=== PATIENT | male | born 1985 | race Caucasian/White ===

== ENCOUNTER 2024-07-31 14:52 | Outpatient (OUT) | payer OTHER, SELFPAY | END 2024-07-31 14:53 | disposition home or self-care (01) | LOC: PST 14:53 | PROVIDERS: Visit Provider Urology | DX: Z01.818 Encounter for other preprocedural examination (principal); Z30.2 Encounter for sterilization; I10 Essential (primary) hypertension ==

== ENCOUNTER 2024-08-01 08:49 | Day surgery (SDC) | payer OTHER, SELFPAY ==
[2024-08-01 09:00] VITALS: BP 145/94; PULSE 71; TEMP 36.1; O2SAT 99; BMI 38.1
[2024-08-01] MEDS: LACTATED RINGER'S SOLUTION 1,000 ML 50 ML IV (09:26)
[2024-08-01] MEDS: CEFAZOLIN SODIUM 2 GM/50 ML D5W PREMIX IV (10:20)
[2024-08-01] MEDS: LIDOCAINE HCL 1% 100 MG/10 ML MDV INJ (10:50)
[2024-08-01] MEDS: BACITRACIN OINTMENT 28.4 GM TUBE 1 APPLIC TOPICAL (10:56)
--- NOTE | 2024-08-01 10:58 | P.URON_ITS ---
Urology Surgery Operative Note Operative Note Procedure Date: 08/01/24 Time Out Performed: yes Pre-op Diagnosis: [place] male; status post left vasectomy. Post-op Diagnosis: same as pre-op Procedures performed: 1. Right segmental vasectomy Anesthesia: MAC and local Primary Surgeon: Javid Joseph Complications: None Estimated blood loss (mL): 5 Findings: Extremely thick scrotum. Very posteriorly located spermatic cord Specimens: Right vasa segment Indications for Procedures: This gentleman is fertile and desirous of sterilization. Yesterday in office he had a left segmental vasectomy. The right side was not able to be done due to his extremely thick scrotum, posterior location of the vas and intolerance. He now presents for right segmental vasectomy. He has signed an informed consent after all risks were explained. Detailed description of Procedure: The patient was brought to the operating room and placed on the operating room table in the supine position. Timeout was done by all parties in the room. We all agreed upon the patient's identification and the planned procedure for this patient. MAC anesthesia was administered. The genitalia were sterilely prepped and draped in the usual fashion. I started by palpating the right hemiscrotum and identifying the vas. It was extremely posteriorly located. I then brought it up to the previously made incision on the right side. This incision was extended with a 15 blade scalpel. Using a hemostat I bluntly dissected to the vas. I then used the ringed forceps and grasped the vas. I then bluntly freed up a loop of vas and brought it out of the incision. There was rather extreme tension on the Juliann during this entire procedure. Hemostats were placed on the loop. The loop was cut with a 15 blade scalpel and this was sent for permanent sections. The ends of the vas were coagulated with the Bovie cautery. They were also tied with a 2-0 Vicryl tie. I then everted the proximal end upon itself with 4-0 Vicryl to help prevent recanalization. After verifying we had excellent hemostasis the ends were allowed to fall back in the hemiscrotum. I then closed the incision with a 4-0 Vicryl in an interrupted fashion after using the needle tip Bovie cautery to coagulate any tiny subcu bleeding. 1% plain lidocaine was infiltrated under the incision. Bacitracin ointment was applied over the incision. Fluffs were placed and a scrotal support was then applied. He was then transferred to a [facility] bed and wheeled to PACU in stable condition.
[2024-08-01 11:02] VITALS: BP 135/96; PULSE 70; TEMP 36.1; O2SAT 99
[2024-08-01 11:17] VITALS: BP 129/90; PULSE 57; O2SAT 100
[2024-08-01 11:33] VITALS: BP 148/99; PULSE 55; O2SAT 100
[2024-08-01 11:55] VITALS: BP 142/88; PULSE 56; O2SAT 100
== END 2024-08-01 12:00 | disposition home or self-care (01) ==
PROVIDERS: PCP Family Medicine; Visit Provider Urology
PROC: (CPT 921; principal; 2024-08-01 15:50)
DX: Z30.2 Encounter for sterilization (principal)
CPT/HCPCS: 55250; 88302; J0690; J1100; J1885; J2250; J2704; J3010